=== PATIENT | male | born 1940 | race Caucasian/White ===

== ENCOUNTER → 2016-10-18 | Outpatient (CLI) | payer MEDICARE ==
--- NOTE | 2016-10-18 10:51 | PCVCIMAG ---
EXAM: AORTOILIAC DUPLEX INDICATION: Palpable abdominal aorta. FINDINGS: AORTA: Suprarenal aorta measures maximum diameter of 2.9 cm. There is not a fusiform infrarenal aortic aneurysm. The infrarenal aorta measures maximum diameter of 2.4 cm. No aortic stenosis. RIGHT COMMON ILIAC ARTERY: Maximum diameter is 1.3 cm. No significant stenosis. RIGHT EXTERNAL ILIAC ARTERY: No significant stenosis. LEFT COMMON ILIAC ARTERY: Maximum diameter is 1.3 cm. No significant stenosis. LEFT EXTERNAL ILIAC ARTERY: No significant stenosis. IMPRESSION: No abdominal aortic aneurysm. No aortoiliac stenosis seen. LOC:[id number]
--- NOTE | 2016-10-18 17:56 | PCVCIMAG ---
APPROVED REPORT Exam: Stress Echocardiogram Indication: CAD , Hypertension, Hyperlipidemia, ischemic cardiomyopathy Patient Location: Echo lab Stress Nurse: Lena Blount RN Status: routine HR: 82 bpm Rhythm: NSR Procedure The patient underwent an Exercise Stress Test using the Tejinder Protocol. Blood pressure, heart rate, and EKG were monitored. An Echocardiogram was performed by technician automatic in four stages in quad fashion. At peak stress, four selected images were obtained and placed side by side with resting images for comparison. Stress Test Details Stress Test: Exercise stress was performed using a manual protocol. HR Resting HR: 82 bpmMax Heart Rate (APMHR): 144 bpm Max HR Achieved: 130 bpmTarget HR (85% APMHR): 122 bpm % of APMHR: 90 HR response to stress: Normal HR response to stress BP Resting BP: 122/68 mmHg Max BP: 182/78 mmHg ECG Resting ECG: Sinus Rhythm Stress ECG: Sinus Rhythm ST Change: Normal Recovery ECG: Sinus Rhythm Clinical Reason for Termination: Maximal effort Stress Symptoms: Dyspnea Exercise duration: 6 min 16 sec Highest Stage Achieved: Stage 2: 2.5 mph at 12% grade. Exercise capacity: 7.70 METs Overall Exercise Capacity for Age: Poor Pre-Stress Echo The resting Echocardiogram showed normal left ventricular contractility with an estimated Ejection Fraction of about 55-60%. Normal wall motion in all segments on baseline images. Post-Stress Echo The stress Echocardiogram showed normal left ventricular contractility with an estimated Ejection Fraction of about 60-65%. Normal augmentation of wall motion in all segments on post stress images. Conclusion Clinical Response: Non-ischemic Exercise Capacity: Average Stress ECG Response: Non-ischemic Stress Echo Images: Non-ischemic Other Information Study Quality: Adequate
== END | disposition home or self-care (01) ==
LOC: PCVCIMAG 10:22
PROVIDERS: ATTEND Internal Medicine Cardiovascular Disease
DX: I10 Essential (primary) hypertension (principal); I25.10 Atherosclerotic heart disease of native coronary artery without angina pectoris; E78.5 Hyperlipidemia, unspecified; I25.5 Ischemic cardiomyopathy; R09.89 Other specified symptoms and signs involving the circulatory and respiratory systems
CPT/HCPCS: 93325; 93351; 93978

== ENCOUNTER → 2017-09-07 | Outpatient (CLI) | payer MEDICARE | END | disposition home or self-care (01) | LOC: PCVCCLINIC 11:39 | DX: I25.10 Atherosclerotic heart disease of native coronary artery without angina pectoris (principal); I10 Essential (primary) hypertension; E78.00 Pure hypercholesterolemia, unspecified; E78.1 Pure hyperglyceridemia; E11.9 Type 2 diabetes mellitus without complications; Z88.0 Allergy status to penicillin; Z79.899 Other long term (current) drug therapy; Z79.84 Long term (current) use of oral hypoglycemic drugs | CPT/HCPCS: 93005; G0463 ==

== ENCOUNTER → 2018-03-29 | Outpatient (CLI) | payer MEDICARE ==
--- NOTE | 2018-03-29 15:47 | PCVCIMAG ---
EXAM: NONINVASIVE ARTERIAL EXAMINATION OF BOTH LOWER EXTREMITIES INCLUDING PRE AND POST EXERCISE PRESSURE MEASUREMENTS AND DOPPLER WAVEFORMS INDICATION: Peripheral Arterial Disease. Leg pain. FINDINGS: Right Brachial: 129 mm Hg. Right Dorsalis Pedis: 158 mm Hg. Right Posterior Tibial: 155 mm Hg. Right TERRI = 1.16. Left Brachial: 136 mm Hg. Left Dorsalis Pedis: 115 mm Hg. Left Posterior Tibial: 248 mm Hg. Left TERRI = 1.82. Post Exercise: Left Brachial 152 mm Hg. Right Dorsalis Pedis: 136 mm Hg. Left Posterior Tibial: 141 mm Hg. Right TERRI = 0.89. Left TERRI = 0.93. IMPRESSION: No resting ischemia in the right lower extremity. No exercise induced ischemia in the right lower extremity. No resting ischemia in the left lower extremity. No exercise induced ischemia in the left lower extremity. LOC:[id number]
--- NOTE | 2018-03-29 15:50 | PCVCIMAG ---
EXAM: BILATERAL LOWER EXTREMITY ARTERIAL DUPLEX INDICATION: Peripheral Arterial Disease. Leg pain. FINDINGS: Right Leg: Common femoral profunda femoral arteries are patent. Superficial femoral artery and popliteal artery are patent. The anterior tibial and peroneal arteries are patent. Short segment occlusion distal posterior tibial artery. Left Leg: Common femoral and profunda femoral arteries are patent. Superficial femoral artery and popliteal artery are patent. The anterior tibial and peroneal arteries are patent. Mild stenosis distal posterior tibial artery. IMPRESSION: Short segment occlusion distal right posterior tibial artery. Otherwise no flow limiting stenosis in the right lower extremity. No flow limiting stenosis in the left lower extremity. Mild stenosis distal left posterior tibial artery. LOC:[id number]
== END | disposition home or self-care (01) ==
LOC: PCVCIMAG 14:39
PROVIDERS: ATTEND Internal Medicine Cardiovascular Disease
DX: I73.9 Peripheral vascular disease, unspecified (principal)
CPT/HCPCS: 93923; 93925; 93924

== ENCOUNTER → 2018-05-22 | Outpatient (CLI) | payer MEDICARE ==
[~2018-05-22] MED LIST: REGADENOSON 0.4 MG/5 ML DISP.SYRIN. IV ONE
--- NOTE | 2018-05-23 16:56 | PCVCIMAG ---
APPROVED REPORT Imaging Protocol: Rest Tc-99m/Stress Tc-99m 1 day Study performed: 05/22/2018 08:57:13 Indication: CAD Patient Location: Out-Patient Stress Nurse: Ella Chang RN, Lena Blount RN [place] Tech:Lenka Bedoyamartha [facility] Ht: 5 ft 11 in Wt: 233 lbs BSA: 2.25 m2 HR: 76 bpm BP: 138/75 mmHg BMI: 32.4 Medical History Medical History: HTN, Hyperlipidemia, Diabetic Noninsulin Medications: Albuterol, Alendronate, ASA, Atorvastatin, Lisinopril-HCTZ, Wellbutrin, Plavix, Advair, Amaryl, Vascepa, Zoloft Allergies: PCN Cardiac Risk Factors: Age Previous Cardiac Procedures: PCI to RCA Pretest Chest Pain Characteristics: No chest pain Exercise History: Physically active Physical Disabilities: Hips Resting Data Rest SPECT myocardial perfusion imaging was performed in supine position 45 minutes following the intravenous injection of 11.9 mCi of Tc-99m Sestamibi. Time of rest injection: 0800 Date: 05/22/2018 Administration Route: IV Administration Site: Right Hand Pharmacologic Stress Pharmacologic stress test was performed by injecting Regadenoson 0.4 mg IV push over 10-15 seconds immediately followed by the intravenous injection of 32.1 mCi of Tc-99m Sestamibi. Time of stress injection: 0930 Date: 05/22/2018 Administration Route: IV Administration Site: Right Hand Gated Stress SPECT was performed 45 minutes after stress injection. The images were gated to evaluate regional wall motion and calculate left ventricular ejection fraction. Stress Test Details Stress Test: Pharmacologic stress was paired with low level exercise. Reason for pharmacologic stress test: hip pain. HRMax Heart Rate (APMHR): 142 bpm Resting HR: 76 bpmTarget HR (85% APMHR): 120 bpm Max HR Achieved: 99 bpm % of APMHR: 69 Recovery HR: 75 bpm BP Resting BP: 138/75 mmHg Max BP: 160/76 mmHg Recovery BP: 143/73 mmHg ECG Resting ECG: Sinus Rhythm, 1st degree AV block Stress ECG: Sinus Rhythm, 1st degree AV block Arrhythmia: None Recovery ECG: Sinus Rhythm, 1st degree AV block Clinical Reason for Termination: Completed protocol Stress Symptoms: Lightheaded, Leg Fatigue, Chest Fullness Exercise duration: 4 min 00 sec Exercise capacity: 1.6 METs Symptoms resolved during recovery. Stress ECG Conclusion ECG: Non-ischemic Study Quality Study: Good Study Data Post stress, the left ventricular ejection was 62%.. SSS: 6 SRS: 4 SDS: 2 TID = 1.07. Perfusion No evidence of stress induced ischemia. 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 Nuclear Conclusion No evidence of stress induced ischemia. 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 Post stress, the left ventricular ejection was 62%. No prior study available for comparison. Interpreted by: Nelson Gandhi MD Electronically Approved: 05/22/2018 14:12:10 <Conclusion> ECG: Non-ischemic
== END | disposition home or self-care (01) ==
LOC: PCVCIMAG 07:51
PROVIDERS: ATTEND Internal Medicine Cardiovascular Disease
DX: I25.10 Atherosclerotic heart disease of native coronary artery without angina pectoris (principal); E11.9 Type 2 diabetes mellitus without complications; I10 Essential (primary) hypertension; E78.5 Hyperlipidemia, unspecified
CPT/HCPCS: 78452; 93017; A9500; J2785